=== PATIENT | male | born 1960 | race Caucasian/White ===

== ENCOUNTER 2021-09-30 11:23 | Emergency (ER) | payer BC ==
[2021-09-30] MEDS ORDERED: Morphine 4 MG/ML VIAL IVPUSH ONE (12:25)
[2021-09-30] MEDS ORDERED: Ondansetron 4 MG/2 ML SDV IVPUSH ONE (12:25)
[2021-09-30] MEDS ORDERED: Piperacillin/Tazobactam 4.5 GM in Sodium Chloride 0.9% 100 ML IV ONE (12:29)
== END 2021-09-30 14:53 ==
LOC: MW.ED 11:23
DX: K85.90 Acute pancreatitis without necrosis or infection, unspecified (principal); Z20.822 Contact with and (suspected) exposure to COVID-19; Z79.899 Other long term (current) drug therapy
CPT/HCPCS: 36415; 74177; 76705; 80053; 81001; 82150; 83605; 83690; 85025; 85652; 86140; 87040; 87635; 96365; 96375; 99284; J2270; J2405; J2543; U0002

== ENCOUNTER 2022-07-03 10:43 | Emergency (ER) | payer BC ==
[2022-07-03 11:12] LABS: APPEARANCE,URINE CLEAR; BILIRUBIN,URINE NEGATIVE (NEGATIVE); COLOR,URINE YELLOW; GLUCOSE,URINE NEGATIVE (NEGATIVE); KETONES,URINE 15 mg/dL (NEGATIVE); LEUKOCYTE ESTERASE,URINE NEGATIVE (NEGATIVE); NITRITE,URINE NEGATIVE (NEGATIVE); OCCULT BLOOD,URINE TRACE-INTACT (NEGATIVE); PROTEIN,URINE 30 mg/dL (NEGATIVE); UROBILINOGEN,URINE 0.2 EU/dL (<2.0)
[2022-07-03] MEDS ORDERED: Sodium Chloride 0.9% 10 ML Syringe FLUSH PRN (11:16)
[2022-07-03] MEDS ORDERED: Morphine 4 MG/ML Syringe IVPUSH ONE (11:16)
[2022-07-03] MEDS ORDERED: Ondansetron 4 MG/2 ML SDV IVPUSH ONE (11:16)
[2022-07-03] MEDS ORDERED: Sodium Chloride 0.9% 1,000 ML IV ONE (11:16)
[2022-07-03] MEDS ORDERED: Sodium Chloride 0.9% 2.5 ML Syringe FLUSH PRN (11:16)
[2022-07-03 11:18] LABS: BACTERIA,URINE OCCASIONAL (NEGATIVE); EPITHELIAL CELLS,URINE FEW (NONE-FEW); MUCUS,URINE FEW (NONE-MOD); RBC,URINE 0-5 (0-2/HPF); SQUAMOUS EPITHELIAL CELLS,UR FEW; WBC,URINE NONE SEEN (0-5/HPF)
[2022-07-03 11:58] LABS: BASOPHILS PERCENT AUTO 0.2 % (0.0-1.5); EOSINOPHILS PERCENT AUTO 0.1 % (0.0-7.0); HEMATOCRIT 50.3 % (38.0-50.0); HEMOGLOBIN 18.2 g/dL (13.0-17.0); LYMPHOCYTES ABSOLUTE AUTO 1.3 K/uL (0.6-2.4); LYMPHOCYTES PERCENT AUTO 13.6 % (16.0-40.0); MEAN CORPUSCULAR HEMOGLOBIN 31.1 pg (27.0-32.0); MEAN CORPUSCULAR HGB CONC 36.2 g/dL (31.0-37.0); MEAN CORPUSCULAR VOLUME 85.8 fL (80.0-98.0); MONOCYTES ABSOLUTE AUTO 0.5 K/uL (0.0-0.8); MONOCYTES PERCENT AUTO 5.1 % (0.0-15.0); NEUTROPHILS ABSOLUTE AUTO 7.8 K/uL (1.4-5.7); NRBC ABSOLUTE 0 K/uL; PLATELET COUNT,PLT 171 K/uL (150-400); RED BLOOD CELL COUNT 5.86 M/uL (4.50-5.90); WHITE BLOOD CELL COUNT,WBC 9.62 K/uL (4.0-11.0)
[2022-07-03 12:25] LABS: ALBUMIN 4.2 g/dL (3.4-5.0); BILIRUBIN TOTAL 1.5 mg/dL (0.2-1.0); CALCIUM 9.5 mg/dL (8.5-10.1); CARBON DIOXIDE,CO2 28.1 mmol/L (21.0-32.0); CREATININE 1.4 mg/dL (0.8-1.3); EST CRCL DRUG DOSING (CG) 57.52 mL/min; PROTEIN TOTAL,TP 8.2 g/dL (6.4-8.2)
== END 2022-07-03 12:56 | disposition home or self-care (01) ==
LOC: MW.ED 10:43
DX: N23 Unspecified renal colic (principal); I10 Essential (primary) hypertension; Z79.899 Other long term (current) drug therapy
CPT/HCPCS: 36415; 74176; 80053; 81001; 85025; 96361; 96374; 99284; J2405; J3490; J7030; 99282

== ENCOUNTER 2022-07-03 15:15 | Emergency (ER) | payer BC ==
[2022-07-03] MEDS ORDERED: Ketorolac 30 MG/ML SDV IVPUSH ONE (15:17)
[2022-07-03] MEDS ORDERED: Ondansetron 4 MG/2 ML SDV IVPUSH ONE (15:26)
[2022-07-03] MEDS ORDERED: Morphine 4 MG/ML Syringe IVPUSH ONE (15:26)
[2022-07-03] MEDS ORDERED: HYDROmorphone 1 MG/ML Syringe IVPUSH ONE (16:37)
== END 2022-07-03 18:01 | disposition home or self-care (01) ==
LOC: MW.ED 15:15
DX: N23 Unspecified renal colic (principal); I10 Essential (primary) hypertension; Z79.899 Other long term (current) drug therapy
CPT/HCPCS: 96374; 96375; 99283; J1170; J2270; J2405; 99282